=== PATIENT | male | born 1950 | race Caucasian/White ===

== ENCOUNTER 2019-11-20 19:53 | Emergency (ER) | payer OTHER ==
[~2019-11-20] VITALS: Ht 172.7 cm; Wt 99.3 kg
[2019-11-20] MEDS ORDERED: SYNTHROID75 MCG PO (20:06)
[2019-11-20] MEDS ORDERED: ASPIR 8181 MG (20:06)
[2019-11-20] MEDS ORDERED: SYNTHROID300 MCG PO (20:06)
[2019-11-20] MEDS ORDERED: TOPROL XL100 M1 (20:06)
[2019-11-20] MEDS ORDERED: CRESTOR20 MG PO (20:06)
[2019-11-20] MEDS ORDERED: COZAAR100 MG PO (20:06)
[2019-11-20] MEDS ORDERED: JANUVIA50 MG PO (20:07)
== END 2019-11-20 22:49 | disposition home or self-care (01) ==
LOC: ER 19:53
DX: S13.4XXA Sprain of ligaments of cervical spine, initial encounter (principal); S50.02XA Contusion of left elbow, initial encounter; S30.0XXA Contusion of lower back and pelvis, initial encounter; V49.9XXA Car occupant (driver) (passenger) injured in unspecified traffic accident, initial encounter; Y93.89 Activity, other specified; Y92.488 Other paved roadways as the place of occurrence of the external cause; Y99.8 Other external cause status

== ENCOUNTER 2022-08-01 09:04 | Inpatient (IN) | payer OTHER ==
[~2022-08-01] VITALS: Ht 172.7 cm; Wt 107.5 kg
[~2022-08-01 09:04] MED LIST: ASPIR 8181 MG; COZAAR100 MG PO; CRESTOR20 MG PO; JANUVIA50 MG PO; SYNTHROID300 MCG PO; SYNTHROID75 MCG PO; TOPROL XL100 M1
[2022-08-01] MEDS ORDERED: UROXATRAL10 MG PO (09:24)
[2022-08-04] MEDS ORDERED: HYDROCHLOROTHIA25 MG (10:13)
[2022-08-04] MEDS ORDERED: IRBESARTAN300 MG (10:13)
[2022-08-04] MEDS ORDERED: ATORVASTATIN CA40 MG (10:13)
[2022-08-04] MEDS ORDERED: ALLOPURINOL300 MG (10:13)
[2022-08-04] MEDS ORDERED: METFORMIN HCL500 M4 (10:13)
[2022-08-04] MEDS ORDERED: PANTOPRAZOLE SO40 MG (10:13)
[2022-08-04] MEDS ORDERED: PENTOXIFYLLINE400 MG (10:14)
[2022-08-04] MEDS ORDERED: FAMOTIDINE20 MG (10:14)
== END 2022-08-06 17:01 | disposition home or self-care (01) | DRG 444 ==
LOC: ER 09:04 → SEC-K 22:07 → MEDJ 08-02 03:53
PROVIDERS: ADMIT Internal Medicine; ATTEND Internal Medicine
PROC: BW21ZZZ Computerized Tomography (CT Scan) of Abdomen and Pelvis (ICD-10-PCS; principal; 2022-08-01)
PROC: BW40ZZZ Ultrasonography of Abdomen (ICD-10-PCS; 2022-08-01)
PROC: B246ZZZ Ultrasonography of Right and Left Heart (ICD-10-PCS; 2022-08-05)
DX: K81.0 Acute cholecystitis (principal); A41.9 Sepsis, unspecified organism; L03.113 Cellulitis of right upper limb; E86.0 Dehydration; D72.828 Other elevated white blood cell count; E11.9 Type 2 diabetes mellitus without complications; Z79.4 Long term (current) use of insulin